=== PATIENT | female | born 2000 | race American Indian/Alaskan Native ===

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

== ENCOUNTER 2020-07-15 13:45 | Emergency (ER) | payer MEDICAID ==
[2020-07-15 13:53] VITALS: BP 112/69
[2020-07-15] MEDS ORDERED: LIDOCAINE-MPF (1%) 10 MG/1 ML VIAL 5 ML INFILTRATI ONE (15:29)
[2020-07-15] MEDS ORDERED: AZITHROMYCIN 250 MG TAB PO ONE (15:29)
--- NOTE | 2020-07-15 15:29 | Emergency Department Report ---
<MAUREEN PARKS - Last Filed: 07/15/20 18:42> ED Female HPI - General Chief complaint: Abdominal Pain Stated complaint: STOMACH PAIN/2DAYS Time Seen by Provider: 07/15/20 14:31 Source: patient Mode of arrival: Ambulatory Limitations: No Limitations - History of Present Illness Initial comments: Patient is a 19-year-old female presents emergency room with complaints of suprapubic abdominal pain that began a week ago. She has associated nausea, urinary frequency, yellow vaginal discharge. She denies any dysuria, back pain, vomiting, diarrhea, fever, vaginal bleeding. She states that she is sexually active and occasionally uses protection. She states that she has an STD history of chlamydia which she reports she was treated for at that time. She denies any past medical history. No allergies medications. She is not on any control. She states that she has irregular menstrual cycles and her last one was 2 months ago. - Related Data Previous Rx's Medication Instructions Recorded Last Taken Type Acetaminophen with Codeine 1 each PO Q6HR PRN #20 tablet 06/18/14 Unknown Rx [Acetaminophen-Codeine #2 TAB] Ibuprofen [Motrin 400 MG tab] 400 mg PO TID PRN #60 tablet 06/18/14 Unknown Rx Permethrin 5% [Acticin 5% CREAM] 1 applicatio TP ONCE #1 tube 08/17/18 Unknown Rx Triamcinolone Aceton 0.1% (Nf) 1 applic TP BID #1 tube 08/17/18 Unknown Rx [Kenalog (NF)] diphenhydrAMINE [Benadryl CAP] 25 mg PO Q6HR PRN #30 capsule 08/17/18 Unknown Rx Ondansetron [Zofran Odt] 4 mg PO Q8HR PRN #20 tab.rapdis 10/08/18 Unknown Rx Sulfamethoxazole/Trimethoprim 1 each PO BID #14 tablet 10/08/18 Unknown Rx [Bactrim DS TAB] Allergies Allergy/AdvReac Type Severity Reaction Status Date / Time No Known Allergies Allergy Verified 06/18/14 17:52 ED Review of Systems Comment: All other systems reviewed and negative ED Past Medical Hx - Past Medical History Previous Medical History?: No - Surgical History Past Surgical History?: No Additional Surgical History: bronchial cleft cyst, - Social History Smoking Status: Never Smoker Substance Use Type: None - Medications Home Medications: Home Medications Medication Instructions Recorded Confirmed Last Taken Type Acetaminophen with Codeine 1 each PO Q6HR PRN #20 tablet 06/18/14 Unknown Rx [Acetaminophen-Codeine #2 TAB] Ibuprofen [Motrin 400 MG tab] 400 mg PO TID PRN #60 tablet 06/18/14 Unknown Rx Permethrin 5% [Acticin 5% CREAM] 1 applicatio TP ONCE #1 tube 08/17/18 Unknown Rx Triamcinolone Aceton 0.1% (Nf) 1 applic TP BID #1 tube 08/17/18 Unknown Rx [Kenalog (NF)] diphenhydrAMINE [Benadryl CAP] 25 mg PO Q6HR PRN #30 capsule 08/17/18 Unknown Rx Ondansetron [Zofran Odt] 4 mg PO Q8HR PRN #20 tab.rapdis 10/08/18 Unknown Rx Sulfamethoxazole/Trimethoprim 1 each PO BID #14 tablet 10/08/18 Unknown Rx [Bactrim DS TAB] ED Physical Exam - General Limitations: No Limitations General appearance: alert, in no apparent distress - Head Head exam: Present: atraumatic, normocephalic - Eye Eye exam: Present: normal appearance - ENT ENT exam: Present: mucous membranes moist - Respiratory Respiratory exam: Present: normal lung sounds bilaterally. Absent: respiratory distress, wheezes, rales, rhonchi, stridor, chest wall tenderness, accessory muscle use, decreased breath sounds, prolonged expiratory - Cardiovascular Cardiovascular Exam: Present: regular rate, normal rhythm, normal heart sounds. Absent: systolic murmur, diastolic murmur, rubs, gallop - GI/Abdominal GI/Abdominal exam: Present: soft, tenderness (mild suprapubic), normal bowel sounds. Absent: distended, guarding, rebound, rigid - External exam: Present: normal external exam. Absent: erythema, swelling, lesions, lacerations, ecchymosis, bleeding Speculum exam: Present: vaginal discharge (white), cervical discharge (white), other (commercial insurance underwriter: BLAIR doll). Absent: erythema, vaginal bleeding, foreign body, tissue, laceration Bi-manual exam: Present: normal bi-manual exam. Absent: cervical motion tendernes, adnexal tenderness, adnexal mass - Neurological Exam Neurological exam: Present: alert, oriented X3 - Psychiatric Psychiatric exam: Present: normal affect, normal mood - Skin Skin exam: Present: warm, dry, intact ED Medical Decision Making - Medical Decision Making Patient is a 19-year-old female presents emergency room with complaints of suprapubic abdominal pain that began a week ago. She has associated nausea, urinary frequency, yellow vaginal discharge. She denies any dysuria, back pain, vomiting, diarrhea, fever, vaginal bleeding. She states that she is sexually active and occasionally uses protection. She states that she has an STD history of chlamydia which she reports she was treated for at that time. She denies any past medical history. No allergies medications. She is not on any control. She states that she has irregular menstrual cycles and her last one was 2 months ago. VSS. on exam: Mild suprapubic abdominal tenderness to palpation, no guarding, no rebound, no rigidity, commercial insurance underwriter for pelvic examination [employer]IR Doll, there is mild amount of white vaginal/cervical discharge, no CMT, no adnexal masses or tenderness. Wet prep is negative. G/C swab sent. Patient would like to be prophylactically treated for G/C, given ceftriaxone azithromycin while in the emergency department. Patient's UA is within normal limits. Urine is positive. Due to positive urine test and patient having lower abdominal discomfort, labs and ultrasound ordered. Patient will be signed out to Peggy Salinas PA-C pending labs and ultrasound results ED Disposition Clinical Impression: Vaginal discharge during in first trimester, Concern about STD in female without diagnosis Qualifiers: Weeks of gestation: less than 8 weeks Qualified Code(s): Z3A.01 - Less than 8 weeks gestation of Disposition: DC-01 TO HOME OR SELFCARE Condition: Stable Instructions: Abdominal Pain (ED), (ED) Additional Instructions: Ultrasound shows that you are 7 weeks and 1 day . I recommend acetaminophen or/Tylenol for pain management. Please follow-up with an [facility] I have listed several below for your convenience. I recommend for you to follow- up at the health department if you are not able to get into the [facility] within a week for STD check. Please inform your partner that you have been treated for STD. Referrals: [facility] [Primary Care Provider] - 3-5 Days [facility] [Provider Group] - 3-5 Days [facility] [Provider Group] - 3-5 Days [facility] [Provider Group] - 3-5 Days <VIOLETA SALINAS - Last Filed: 07/15/20 20:01> ED Review of Systems ROS: Stated complaint: STOMACH PAIN/2DAYS Other details as noted in HPI ED Course Vital Signs 07/15/20 07/15/20 13:52 19:35 Temperature 98.9 F Pulse Rate 89 Respiratory 16 18 Rate Blood Pressure 112/69 [Right] O2 Sat by Pulse 99 Oximetry ED Medical Decision Making - Lab Data Result diagrams: 07/15/20 18:26 07/15/20 18:26 Laboratory Tests 07/15/20 07/15/20 07/15/20 18:26 18:26 18:26 WBC 5.0 RBC 4.06 Hgb 12.6 Hct 36.9 MCV 91 MCH 31 MCHC 34 RDW 12.9 L Plt Count 252 Lymph % (Auto) 21.9 [place] % (Auto) 9.0 H Eos % (Auto) 0.5 Baso % (Auto) 0.5 Lymph # (Auto) 1.1 L [place] # (Auto) 0.5 Eos # (Auto) 0.0 Baso # (Auto) 0.0 Seg Neutrophils % 68.1 Seg Neutrophils # 3.4 Sodium 132 L Potassium 4.0 Chloride 98.0 Carbon Dioxide 22 Anion Gap 16 BUN 9 Creatinine 0.5 L Estimated GFR > 60 BUN/Creatinine Ratio 18 Glucose 83 Calcium 9.3 Total Bilirubin 0.50 AST 14 ALT 5 L Alkaline Phosphatase 43 Total Protein 7.5 Albumin 4.3 Albumin/Globulin Ratio 1.3 HCG, Quant [id number] H Urine Color Urine Turbidity Urine pH Ur Specific [place] Urine Protein Urine Glucose (UA) Urine Ketones Urine Blood Urine Nitrite Urine Bilirubin Urine Urobilinogen Ur Leukocyte Esterase Urine WBC (Auto) Urine RBC (Auto) U Epithel Cells (Auto) Urine Mucus Urine HCG, Qual 07/15/20 Unknown WBC RBC Hgb Hct MCV MCH MCHC RDW Plt Count Lymph % (Auto) [place] % (Auto) Eos % (Auto) Baso % (Auto) Lymph # (Auto) [place] # (Auto) Eos # (Auto) Baso # (Auto) Seg Neutrophils % Seg Neutrophils # Sodium Potassium Chloride Carbon Dioxide Anion Gap BUN Creatinine Estimated GFR BUN/Creatinine Ratio Glucose Calcium Total Bilirubin AST ALT Alkaline Phosphatase Total Protein Albumin Albumin/Globulin Ratio HCG, Quant Urine Color [place]a Urine Turbidity Clear Urine pH 7.0 Ur Specific [place] 1.028 Urine Protein 30 mg/dl Urine Glucose (UA) Neg Urine Ketones 80 Urine Blood Neg Urine Nitrite Neg Urine Bilirubin Neg Urine Urobilinogen 4.0 Ur Leukocyte Esterase Neg Urine WBC (Auto) 1.0 Urine RBC (Auto) 7.0 U Epithel Cells (Auto) 5.0 Urine Mucus 3+ Urine HCG, Qual Positive A - Radiology Data Radiology results: report reviewed Referring Physician:MAUREEN PARKSPatient Name:DEIRDRE FONSECAPatient ID:[id number] of :[birth year]:FemaleAccession:[id number] Date:[id number] Status:Finalized Findings [facility] [address] [place] [address] Ultrasound Report Signed Patient: DEIRDRE FONSECA MR#: [id number] : 2000 Acct:[id number] Age/Sex: 19 / F ADM Date: 07/15/20 Loc: ED Attending Dr: Ordering Physician: ELLIE FERRIS Date of Service: 07/15/20 Procedure(s): US OB <= 14 weeks fetus Accession Number(s): [id number] cc: ELLIE FERRIS ULTRASOUND OBSTETRIC INDICATION / CLINICAL INFORMATION: , lower abd pain. Clinical Gestational Age (GA): Unavailable due to irregular periods TECHNIQUE: Transabdominal. COMPARISON: None available. FINDINGS: GESTATIONAL SAC: Well-defined oval shape and intrauterine in location. YOLK SAC: No significant abnormality. EMBRYO/FETUS: No significant abnormality. - [place]-Rump Length = 1.05 cm = 7.1 weeks.days - Heart Rate, beats per minute (if present) = 166 ADNEXA: Right ovary appears within normal limits. Left ovary was not visualized. FREE FLUID: None. ADDITIONAL FINDINGS: None. IMPRESSION: 1. Single, living intrauterine with estimated sonographic age of 7.1 weeks.days. Signer Name: Nitin Gonzalez MD Signed: 07/15/2020 7:43 PM Workstation Name: [id number] Transcribed By: DT Dictated By: Edwin Gonzalez MD Electronically Authenticated By: Edwin Gonzalez MD Signed Date/Time: 07/15/201942 DD/ 40 TD/TT: - Medical Decision Making hCG is completed. Ultrasound shows a intrauterine gestation of 7 weeks and 1 day. Recommend patient to follow-up [facility] as well as the health department for full STD check. You can go ahead and start your vitamins. Critical care attestation.: If time is entered above; I have spent that time in minutes in the direct care of this critically ill patient, excluding procedure time. ED Disposition Is pt being admited?: No Does the pt Need Aspirin: No
[2020-07-15 17:58] LABS: Bilirubin,Urine NEG (Negative); Blood,Urine NEG (Negative); Color,Urine Amber (Yellow); Mucus,Urine 3+ /HPF
[2020-07-15 18:02] LABS: HCG Qualitative,Urine Positive (Negative)
[2020-07-15 19:18] LABS: Basophils % (Auto) 0.5 % (0.0-1.8); Eosinophils % (Auto) 0.5 % (0.0-4.3); Hematocrit 36.9 % (30.3-42.9); Hemoglobin 12.6 gm/dl (10.1-14.3); Lymphocytes # (Auto) 1.1 K/mm3 (1.2-5.4); Lymphocytes % (Auto) 21.9 % (13.4-35.0); Mean Corpuscular HGB Conc 34 % (30-34); Mean Corpuscular Volume 91 fl (79-97); Monocytes # (Auto) 0.5 K/mm3 (0.0-0.8); Platelet Count 252 K/mm3 (140-440); Red Blood Count 4.06 M/mm3 (3.65-5.03); Red Cell Distribution Width 12.9 % (13.2-15.2)
[2020-07-15] MEDS ORDERED: PROMETHAZINE 25 MG TAB PO ONE (19:30)
[2020-07-15 19:31] LABS: Alanine Aminotransferase 5 units/L (7-56); Albumin 4.3 g/dL (3.9-5); Blood Urea Nitrogen 9 mg/dL (7-17); Calcium 9.3 mg/dL (8.4-10.2); Hemolysis Index 41
[2020-07-15] MEDS ORDERED: ACETAMINOPHEN 325 MG TAB PO ONE (19:32)
[2020-07-15] MEDS ORDERED: PROMETHAZINE 25 MG TAB ONE (19:33)
[2020-07-15] MEDS ORDERED: ACETAMINOPHEN 325 MG TAB ONE (19:33)
[2020-07-15 19:35] LABS: BUN/Creatinine Ratio 18
--- NOTE | 2020-07-15 19:48 | Ultrasound Report ---
ULTRASOUND OBSTETRIC INDICATION / CLINICAL INFORMATION: , lower abd pain. Clinical Gestational Age (GA): Unavailable due to irregular periods TECHNIQUE: Transabdominal. COMPARISON: None available. FINDINGS: GESTATIONAL SAC: Well-defined oval shape and intrauterine in location. YOLK SAC: No significant abnormality. EMBRYO/FETUS: No significant abnormality. - [place]-Rump Length = 1.05 cm = 7.1 weeks.days - Heart Rate, beats per minute (if present) = 166 ADNEXA: Right ovary appears within normal limits. Left ovary was not visualized. FREE FLUID: None. ADDITIONAL FINDINGS: None. IMPRESSION: 1. Single, living intrauterine with estimated sonographic age of 7.1 weeks.days. Signer Name: Nitin Gonzalez MD Signed: 07/15/2020 7:43 PM Workstation Name: [id number]
== END 2020-07-15 20:11 | disposition home or self-care (01) ==
LOC: ED 13:45
DX: O26.891 Other specified pregnancy related conditions, first trimester (principal); N89.8 Other specified noninflammatory disorders of vagina; R10.2 Pelvic and perineal pain; Z20.2 Contact with and (suspected) exposure to infections with a predominantly sexual mode of transmission; Z3A.01 Less than 8 weeks gestation of pregnancy; Z98.890 Other specified postprocedural states; Z79.1 Long term (current) use of non-steroidal anti-inflammatories (NSAID); Z79.899 Other long term (current) drug therapy
CPT/HCPCS: 36415; 76801; 80053; 81001; 81025; 84702; 85025; 87210; 87591; 96372; 99284; J0696; Q0169

== ENCOUNTER 2021-01-27 16:01 | Outpatient (CLI) | payer MEDICAID ==
--- NOTE | 2021-01-27 16:49 | Event Note ---
ED Screening Note Date of service: 01/27/21 Time: 16:44 ED Screening Note: 20-year-old female (31 weeks gestation) presents to the emergency department with complaints of vaginal discharge for 2 days. No fever. No abdominal pain. No vaginal bleeding. She is concerned about the possibility of STD exposure. Vital signs are stable. Patient was advised that STD testing is not routinely performed in the emergency department. She is requesting prophylactic treatment. It was explained to the patient that STD prophylaxis is not an emergency and we do not have the ability to diagnose STDs in real-time. Patient has been advised that we are able to evaluate for other conditions, i.e. UTI, bacterial vaginosis, vaginal candidiasis, etc. It was explained to the patient that outpatient management (i.e. follow-up with health department and/or OB) would be most reasonable, since she is not febrile and she is not experiencing any pain or bleeding. However, patient would prefer to be evaluated here. She will return to the waiting room pending examination room availability. I have greeted and performed a focused rapid initial assessment of this patient. A comprehensive ED assessment and evaluation of the patient, analysis of all test results, and completion of the medical decision-making process will be conducted by additional ED providers. This initial assessment/diagnostic orders/clinical plan/treatment(s) is/are subject to change based on patients health status, clinical progression and re-assessment. Further treatment and workup at subsequent clinical provider's discretion. Patient/guardian urged not to elope from the ED as their condition may be serious if not clinically assessed and managed.
--- NOTE | 2021-01-27 19:46 | Emergency Department Report ---
Blank Doc - Documentation Documentation: This is a 20-year-old female that presents to the ER with a complaint of vaginal discharge. Patient is stable and was examined by me. Patient is currently 31 weeks otherwise denies any vaginal bleeding or any abdomen/pelvic pain. Due to vaginal discharge and patient being 31 weeks , patient has been sent to labor and delivery by RN for further evaluation and treatment. Differential diagnosis includes ruptured membrane of amniotic sac, STD, cervicitis, back to vaginosis, etc.
[2021-01-27] MEDS ORDERED: LACTATED RINGERS 500 ML IV ONE (20:06)
[2021-01-27 20:11] VITALS: BP 117/63
[2021-01-27] MEDS ORDERED: FLUCONAZOLE 100 MG TAB PO ONE (20:21)
[2021-01-27] MEDS ORDERED: FLUCONAZOLE 200 MG TAB PO ONE (21:00)
== END 2021-01-27 20:55 | disposition home or self-care (01) ==
LOC: TRG 16:01 → ED 16:01 → EDSTATUS 19:44 → APU 19:54 → TRG 20:55
PROVIDERS: ATTEND Obstetrics & Gynecology
DX: O26.893 Other specified pregnancy related conditions, third trimester (principal); N89.8 Other specified noninflammatory disorders of vagina; Z3A.36 36 weeks gestation of pregnancy
CPT/HCPCS: 59020